=== PATIENT | female | born 1955 | race Caucasian/White ===

== ENCOUNTER 2022-06-27 14:22 | Inpatient (IN) ==
[2022-06-27] MEDS ORDERED: Furosemide 20 MG TABLET PO PRN (17:07)
[2022-06-27] MEDS ORDERED: Sennosides/Docusate Sodium TABLET PO PRN (17:07)
[2022-06-27] MEDS: *HR* OxyCODONE/APAP 5/325 TABLET PO PRN (21:42)
[2022-06-27] MEDS: cephALEXin 500 MG CAPSULE PO SCH (21:42)
[2022-06-28 07:24] LABS: Potassium 3.5 mEq/L (3.5-5.1)
[2022-06-28 07:32] LABS: Basophils # 0.1 K/mcL (0.0-0.2); Basophils % 0.6 %; Eosinophils # 0.3 K/mcL (0.0-0.6); Eosinophils % 3.6 %; Hematocrit 30.4 % (35.3-44.9); Hemoglobin 9.3 g/dL (11.5-15.4); Immature Granulocytes % 3.7 % (0-4); Lymphocytes % 12.7 %; Mean Corpuscular HGB Conc 30.6 g/dL (31.6-35.5); Mean Corpuscular Hemoglobin 26.6 pg (28.0-33.3); Mean Corpuscular Volume 87.1 fL (83.0-100.0); Mean Platelet Volume 10.4 fL (9.4-12.4); Monocytes # 0.9 K/mcL (0.0-1.3); Monocytes % 10.5 %; Neutrophils # 5.6 K/mcL (1.6-8.9); Platelet Count 247 K/mcL (140-400); Red Blood Count 3.49 M/mcL (3.82-4.97); Red Cell Distribution Width 15.9 % (11.5-14.5); Segmented Neutrophils % 68.9 %; White Blood Count 8.1 K/mcL (4.3-11.1)
[2022-06-28 10:25] LABS: Calcium 9.4 mg/dL (8.6-10.3)
[2022-06-28] MEDS: Metoprolol XL (24 HR) Succ 50 MG TAB.ER.24H PO SCH (10:58)
[2022-06-28] MEDS: Multivit/Ca/Min/Fe/FA 1 TAB TABLET PO SCH (10:58)
[2022-06-28] MEDS: polyethylene glycoL 3350 17 GM POWD.PACK PO SCH (10:59)
[2022-06-28] MEDS: cephALEXin 500 MG CAPSULE PO SCH ×3 (10:59→21:11)
[2022-06-28] MEDS: Loratadine 10 MG TABLET PO SCH (10:59)
[2022-06-28] MEDS: *HR* Rivaroxaban 10 MG TABLET PO SCH (10:59)
[2022-06-28] MEDS: Nystatin POWDER 30 GM BOTTLE TP PRN (11:01)
[2022-06-28] MEDS: *HR* OxyCODONE/APAP 5/325 TABLET PO PRN ×2 (11:03→19:30)
[2022-06-29] MEDS: Acetaminophen 325 MG TABLET PO PRN ×2 (05:49→20:22)
[2022-06-29] MEDS: polyethylene glycoL 3350 17 GM POWD.PACK PO SCH (08:11)
[2022-06-29] MEDS: Loratadine 10 MG TABLET PO SCH (08:12)
[2022-06-29] MEDS: cephALEXin 500 MG CAPSULE PO SCH ×3 (08:12→20:22)
[2022-06-29] MEDS: Metoprolol XL (24 HR) Succ 50 MG TAB.ER.24H PO SCH (08:13)
[2022-06-29] MEDS: Multivit/Ca/Min/Fe/FA 1 TAB TABLET PO SCH (08:13)
[2022-06-29] MEDS: *HR* Rivaroxaban 10 MG TABLET PO SCH (08:13)
[2022-06-29] MEDS: Cyanocobalamin (B-12) 1,000 MCG/ML VIAL SQ SCH (08:19)
[2022-06-29] MEDS: *HR* OxyCODONE/APAP 5/325 TABLET PO PRN ×2 (08:20→13:45)
[2022-06-29] MEDS: Nystatin POWDER 30 GM BOTTLE TP PRN (20:22)
[2022-06-30] MEDS: *HR* OxyCODONE/APAP 5/325 TABLET PO PRN ×3 (00:12→22:29)
[2022-06-30] MEDS: Metoprolol XL (24 HR) Succ 50 MG TAB.ER.24H PO SCH (08:54)
[2022-06-30] MEDS: Cyanocobalamin (B-12) 1,000 MCG/ML VIAL SQ SCH (08:55)
[2022-06-30] MEDS: Multivit/Ca/Min/Fe/FA 1 TAB TABLET PO SCH (08:55)
[2022-06-30] MEDS: *HR* Rivaroxaban 10 MG TABLET PO SCH (08:55)
[2022-06-30] MEDS: Loratadine 10 MG TABLET PO SCH (08:55)
[2022-06-30] MEDS: cephALEXin 500 MG CAPSULE PO SCH ×2 (08:55→13:51)
[2022-06-30] MEDS: polyethylene glycoL 3350 17 GM POWD.PACK PO SCH (08:56)
[2022-06-30] MEDS: Nystatin POWDER 30 GM BOTTLE TP PRN (20:10)
[2022-07-01] MEDS: *HR* Rivaroxaban 10 MG TABLET PO SCH (09:20)
[2022-07-01] MEDS: polyethylene glycoL 3350 17 GM POWD.PACK PO SCH (09:20)
[2022-07-01] MEDS: Cyanocobalamin (B-12) 1,000 MCG/ML VIAL SQ SCH (09:21)
[2022-07-01] MEDS: Metoprolol XL (24 HR) Succ 50 MG TAB.ER.24H PO SCH (09:21)
[2022-07-01] MEDS: Loratadine 10 MG TABLET PO SCH (09:21)
[2022-07-01] MEDS: *HR* OxyCODONE/APAP 5/325 TABLET PO PRN ×2 (09:21→21:00)
[2022-07-01] MEDS: Multivit/Ca/Min/Fe/FA 1 TAB TABLET PO SCH (09:21)
[2022-07-02 04:55] LABS: Hematocrit 30.4 % (35.3-44.9); Hemoglobin 9.3 g/dL (11.5-15.4); Mean Corpuscular HGB Conc 30.6 g/dL (31.6-35.5); Mean Corpuscular Hemoglobin 26.9 pg (28.0-33.3); Mean Corpuscular Volume 87.9 fL (83.0-100.0); Mean Platelet Volume 10.5 fL (9.4-12.4); Platelet Count 217 K/mcL (140-400); Red Blood Count 3.46 M/mcL (3.82-4.97); Red Cell Distribution Width 16.5 % (11.5-14.5)
[2022-07-02 05:15] LABS: Albumin 3.1 g/dL (3.5-5.7); Albumin/Globulin Ratio 1.1 (1.1-2.2); Bilirubin,Total 0.5 mg/dL (0.3-1.0); Calcium 9.2 mg/dL (8.6-10.3); Globulin 2.9 g/dL (2.4-3.5); Magnesium 1.8 mg/dL (1.6-2.6); Potassium 4.2 mEq/L (3.5-5.1)
[2022-07-02] MEDS: *HR* Rivaroxaban 10 MG TABLET PO SCH (08:41)
[2022-07-02] MEDS: Metoprolol XL (24 HR) Succ 50 MG TAB.ER.24H PO SCH (08:41)
[2022-07-02] MEDS: Multivit/Ca/Min/Fe/FA 1 TAB TABLET PO SCH (08:42)
[2022-07-02] MEDS: Loratadine 10 MG TABLET PO SCH (08:42)
[2022-07-02] MEDS: polyethylene glycoL 3350 17 GM POWD.PACK PO SCH (08:42)
[2022-07-02] MEDS: Cyanocobalamin (B-12) 1,000 MCG/ML VIAL SQ SCH (08:43)
[2022-07-02] MEDS: *HR* OxyCODONE/APAP 5/325 TABLET PO PRN ×2 (11:50→20:42)
[2022-07-03] MEDS: Cyanocobalamin (B-12) 1,000 MCG/ML VIAL SQ SCH (08:53)
[2022-07-03] MEDS: Metoprolol XL (24 HR) Succ 50 MG TAB.ER.24H PO SCH (08:55)
[2022-07-03] MEDS: Multivit/Ca/Min/Fe/FA 1 TAB TABLET PO SCH (08:55)
[2022-07-03] MEDS: *HR* Rivaroxaban 10 MG TABLET PO SCH (08:55)
[2022-07-03] MEDS: Loratadine 10 MG TABLET PO SCH (08:55)
[2022-07-03] MEDS: polyethylene glycoL 3350 17 GM POWD.PACK PO SCH (08:56)
[2022-07-03] MEDS: *HR* OxyCODONE/APAP 5/325 TABLET PO PRN ×3 (08:56→22:50)
[2022-07-04] MEDS: *HR* OxyCODONE/APAP 5/325 TABLET PO PRN ×2 (07:58→17:40)
[2022-07-04] MEDS: *HR* Rivaroxaban 10 MG TABLET PO SCH (07:58)
[2022-07-04] MEDS: Multivit/Ca/Min/Fe/FA 1 TAB TABLET PO SCH (07:58)
[2022-07-04] MEDS: Loratadine 10 MG TABLET PO SCH (07:59)
[2022-07-04] MEDS: polyethylene glycoL 3350 17 GM POWD.PACK PO SCH (07:59)
[2022-07-04] MEDS: Metoprolol XL (24 HR) Succ 50 MG TAB.ER.24H PO SCH (07:59)
[2022-07-04] MEDS: Cyanocobalamin (B-12) 1,000 MCG/ML VIAL SQ SCH (07:59)
[2022-07-05] MEDS: *HR* Rivaroxaban 10 MG TABLET PO SCH (10:12)
[2022-07-05] MEDS: Loratadine 10 MG TABLET PO SCH (10:12)
[2022-07-05] MEDS: Metoprolol XL (24 HR) Succ 50 MG TAB.ER.24H PO SCH (10:13)
[2022-07-05] MEDS: polyethylene glycoL 3350 17 GM POWD.PACK PO SCH (10:13)
[2022-07-05] MEDS: Cyanocobalamin (B-12) 1,000 MCG/ML VIAL SQ SCH (10:13)
[2022-07-05] MEDS: Multivit/Ca/Min/Fe/FA 1 TAB TABLET PO SCH (10:13)
[2022-07-05] MEDS: *HR* OxyCODONE/APAP 5/325 TABLET PO PRN ×2 (10:36→20:59)
[2022-07-06] MEDS: Loratadine 10 MG TABLET PO SCH (08:00)
[2022-07-06] MEDS: *HR* Rivaroxaban 10 MG TABLET PO SCH (08:00)
[2022-07-06] MEDS: Metoprolol XL (24 HR) Succ 50 MG TAB.ER.24H PO SCH (08:00)
[2022-07-06] MEDS: Multivit/Ca/Min/Fe/FA 1 TAB TABLET PO SCH (08:00)
[2022-07-06] MEDS: polyethylene glycoL 3350 17 GM POWD.PACK PO SCH (08:01)
[2022-07-06] MEDS: *HR* OxyCODONE/APAP 5/325 TABLET PO PRN ×2 (10:08→22:12)
[2022-07-07] MEDS: Multivit/Ca/Min/Fe/FA 1 TAB TABLET PO SCH (07:52)
[2022-07-07] MEDS: Metoprolol XL (24 HR) Succ 50 MG TAB.ER.24H PO SCH (07:52)
[2022-07-07] MEDS: *HR* Rivaroxaban 10 MG TABLET PO SCH (07:52)
[2022-07-07] MEDS: Loratadine 10 MG TABLET PO SCH (07:52)
[2022-07-07] MEDS: polyethylene glycoL 3350 17 GM POWD.PACK PO SCH (07:53)
[2022-07-07] MEDS: Nystatin POWDER 30 GM BOTTLE TP PRN (07:54)
[2022-07-07] MEDS: *HR* OxyCODONE/APAP 5/325 TABLET PO PRN (16:32)
[2022-07-08] MEDS: Ondansetron ODT 4 MG TAB.RAPDIS SL PRN (03:59)
[2022-07-08 05:01] LABS: Basophils % 0.5 %; Eosinophils # 0.3 K/mcL (0.0-0.6); Eosinophils % 3.3 %; Hematocrit 31.4 % (35.3-44.9); Hemoglobin 9.6 g/dL (11.5-15.4); Immature Granulocytes % 0.4 % (0-4); Lymphocytes # 1.7 K/mcL (0.6-4.6); Lymphocytes % 22.1 %; Mean Corpuscular HGB Conc 30.6 g/dL (31.6-35.5); Mean Corpuscular Hemoglobin 27.1 pg (28.0-33.3); Mean Corpuscular Volume 88.7 fL (83.0-100.0); Monocytes # 0.7 K/mcL (0.0-1.3); Monocytes % 9.1 %; Neutrophils # 4.9 K/mcL (1.6-8.9); Platelet Count 221 K/mcL (140-400); Red Blood Count 3.54 M/mcL (3.82-4.97); Red Cell Distribution Width 16.7 % (11.5-14.5); Segmented Neutrophils % 64.6 %; White Blood Count 7.6 K/mcL (4.3-11.1)
[2022-07-08 05:18] LABS: Calcium 9.7 mg/dL (8.6-10.3)
[2022-07-08] MEDS: *HR* Rivaroxaban 10 MG TABLET PO SCH (08:09)
[2022-07-08] MEDS: polyethylene glycoL 3350 17 GM POWD.PACK PO SCH (08:09)
[2022-07-08] MEDS: Loratadine 10 MG TABLET PO SCH (08:09)
[2022-07-08] MEDS: Multivit/Ca/Min/Fe/FA 1 TAB TABLET PO SCH (08:09)
[2022-07-08] MEDS: Metoprolol XL (24 HR) Succ 50 MG TAB.ER.24H PO SCH (08:09)
[2022-07-08] MEDS: *HR* OxyCODONE/APAP 5/325 TABLET PO PRN (18:14)
[2022-07-09] MEDS: *HR* Rivaroxaban 10 MG TABLET PO SCH (09:00)
[2022-07-09] MEDS: Loratadine 10 MG TABLET PO SCH (09:00)
[2022-07-09] MEDS: Metoprolol XL (24 HR) Succ 50 MG TAB.ER.24H PO SCH (09:00)
[2022-07-09] MEDS: Multivit/Ca/Min/Fe/FA 1 TAB TABLET PO SCH (09:00)
[2022-07-09] MEDS: polyethylene glycoL 3350 17 GM POWD.PACK PO SCH (09:01)
[2022-07-09] MEDS: *HR* OxyCODONE/APAP 5/325 TABLET PO PRN (17:20)
[2022-07-09 20:08] VITALS: O2SAT 93
[2022-07-10] MEDS: Ondansetron ODT 4 MG TAB.RAPDIS SL PRN (03:29)
[2022-07-10 06:55] VITALS: BP 125/51; PULSE 73; RESP 19; TEMP 98
[2022-07-10] MEDS: Multivit/Ca/Min/Fe/FA 1 TAB TABLET PO SCH (08:11)
[2022-07-10] MEDS: Metoprolol XL (24 HR) Succ 50 MG TAB.ER.24H PO SCH (08:11)
[2022-07-10] MEDS: *HR* Rivaroxaban 10 MG TABLET PO SCH (08:11)
[2022-07-10] MEDS: polyethylene glycoL 3350 17 GM POWD.PACK PO SCH (08:12)
[2022-07-10] MEDS: Loratadine 10 MG TABLET PO SCH (08:12)
== END 2022-07-10 13:15 | disposition home health service (06) | DRG 560 ==
LOC: INPGRE 17:25
PROVIDERS: ADMIT Family Medicine; ATTEND Family Medicine